=== PATIENT | female | born 1940 | race Caucasian/White ===

== ENCOUNTER 2020-06-05 14:25 | Outpatient (CLI) | payer MEDICARE, BC ==
[~2020-06-05 14:25] MED LIST: ASPI-1265 PO; CHOL4PAC2 PO; FENO135C3 PO; FOLI-43 PO; LISI-600 PO; LOVA20TA2 PO
== END 2020-06-05 23:59 | disposition home or self-care (01) ==
LOC: RAD 14:25
DX: R13.14 Dysphagia, pharyngoesophageal phase (principal); K21.9 Gastro-esophageal reflux disease without esophagitis
CPT/HCPCS: 74230

== ENCOUNTER 2022-02-24 08:19 | Emergency (ER) | payer MEDICARE, BC ==
[~2022-02-24] VITALS: Ht 162.6 cm; Wt 50.0 kg
[~2022-02-24 08:19] MED LIST changes: -CHOL4PAC2 PO; +CHOL4POW4 PO; -LISI-600 PO; +LISI20TA28 PO
[2022-02-24] MEDS ORDERED: aspirin 81mg tab.chew PO ONE (08:20)
[2022-02-24 08:48] LABS: BASOPHILS % (AUTO) 0.7 % (0-1); EOSINOPHILS % (AUTO) 0.7 % (0-6); HEMATOCRIT 36.7 % (35.0-45.0); HEMOGLOBIN 12.4 g/dl (12.0-16.0); LYMPHOCYTES # (AUTO) 1.1 X10'3 (1.1-4.8); LYMPHOCYTES % (AUTO) 19.8 % (21-51); MEAN CORPUSCULAR HEMOGLOBIN 32.3 PG (27.0-31.0); MEAN CORPUSCULAR HGB CONC 33.7 g/dL (33.0-36.5); MEAN CORPUSCULAR VOLUME 95.7 FL (78-98); MEAN PLATELET VOLUME 8.1 FL (7.4-10.4); MONOCYTES # (AUTO) 0.5 X10'3 (0-0.9); MONOCYTES % (AUTO) 8.9 % (2-12); NEUTROPHILS % (AUTO) 69.9 % (42-75); PLATELET COUNT 278 X10'3 (140-440); RED BLOOD COUNT 3.83 X10'6 (4.20-5.60); RED CELL DISTRIBUTION WIDTH 13.6 % (11.5-14.5); WHITE BLOOD COUNT 5.7 X10'3 (4.5-11.0)
[2022-02-24 09:00] LABS: ALANINE AMINOTRANSFERASE 13 U/L (12-78); ALBUMIN 3.3 G/DL (3.4-5.0); ALBUMIN/GLOBULIN RATIO 0.8 (1.1-1.5); ALKALINE PHOSPHATASE 48 IU/L (46-116); ANION GAP 12 (8-16); ASPARTATE AMINO TRANSFERASE 15 U/L (10-37); BILIRUBIN,TOTAL 0.5 MG/DL (0.1-1.0); BLOOD UREA NITROGEN 14 MG/DL (7-18); BUN/CREATININE RATIO 19.7 (6.6-38.0); CALCIUM 10.1 MG/DL (8.5-10.1); CHLORIDE 104 MMOL/L (99-107); CREATININE 0.71 MG/DL (0.40-0.90); GLUCOSE 113 MG/DL (70-104); POTASSIUM 3.5 MMOL/L (3.5-5.1); SODIUM 141 MMOL/L (135-145); TOTAL CARBON DIOXIDE 25.3 MMOL/L (24-32); TOTAL PROTEIN 7.2 G/DL (6.4-8.2); eGFR 79 ML/MIN
[2022-02-24 09:07] LABS: MAGNESIUM 1.9 MG/DL (1.5-2.4)
--- NOTE | 2022-02-24 09:32 | NUR ---
PT WAS SOILED, SHE WAS CLEANED AND DRESSED IN [facility].
[2022-02-24] MEDS ORDERED: normal saline 1000ml 1,000 ML IV ONE (10:20)
[2022-02-24 11:22] VITALS: BP 134/68
== END 2022-02-24 13:42 | disposition home or self-care (01) ==
LOC: ER 08:19
DX: R55 Syncope and collapse (principal); M25.511 Pain in right shoulder; I10 Essential (primary) hypertension; F03.90 Unspecified dementia, unspecified severity, without behavioral disturbance, psychotic disturbance, mood disturbance, and anxiety; Z79.899 Other long term (current) drug therapy
CPT/HCPCS: 36415; 71045; 80053; 83735; 83880; 84484; 85025; 93005; 96360; 96361; 99285; J7030

== ENCOUNTER 2022-03-07 07:38 | Emergency (ER) | payer MEDICARE, BC ==
[~2022-03-07] VITALS: Ht 165.1 cm; Wt 50.0 kg
[2022-03-07] MEDS ORDERED: normal saline 1000ML IV soln IVB ONE (08:05)
[2022-03-07 08:19] LABS: BASOPHILS # (AUTO) 0.1 X10'3 (0-0.2); BASOPHILS % (AUTO) 0.7 % (0-1); EOSINOPHILS # (AUTO) 0.1 X10'3 (0-0.9); EOSINOPHILS % (AUTO) 1.4 % (0-6); HEMATOCRIT 35.8 % (35.0-45.0); HEMOGLOBIN 12.6 g/dl (12.0-16.0); LYMPHOCYTES # (AUTO) 0.9 X10'3 (1.1-4.8); LYMPHOCYTES % (AUTO) 11.9 % (21-51); MEAN CORPUSCULAR HEMOGLOBIN 33.3 PG (27.0-31.0); MEAN CORPUSCULAR HGB CONC 35.3 g/dL (33.0-36.5); MEAN CORPUSCULAR VOLUME 94.4 FL (78-98); MEAN PLATELET VOLUME 7.6 FL (7.4-10.4); MONOCYTES # (AUTO) 0.7 X10'3 (0-0.9); MONOCYTES % (AUTO) 9.7 % (2-12); NEUTROPHILS # (AUTO) 5.4 X10'3 (1.8-7.7); NEUTROPHILS % (AUTO) 76.3 % (42-75); PLATELET COUNT 253 X10'3 (140-440); RED CELL DISTRIBUTION WIDTH 13.6 % (11.5-14.5); WHITE BLOOD COUNT 7.1 X10'3 (4.5-11.0)
[2022-03-07 08:33] LABS: ALANINE AMINOTRANSFERASE 14 U/L (12-78); ALBUMIN 3.7 G/DL (3.4-5.0); ALBUMIN/GLOBULIN RATIO 1.1 (1.1-1.5); ALKALINE PHOSPHATASE 51 IU/L (46-116); ANION GAP 4 (8-16); ASPARTATE AMINO TRANSFERASE 16 U/L (10-37); BILIRUBIN,TOTAL 0.5 MG/DL (0.1-1.0); BLOOD UREA NITROGEN 11 MG/DL (7-18); BUN/CREATININE RATIO 13.1 (6.6-38.0); CALCIUM 9.7 MG/DL (8.5-10.1); CHLORIDE 106 MMOL/L (99-107); CREATININE 0.84 MG/DL (0.40-0.90); GLUCOSE 101 MG/DL (70-104); POTASSIUM 3.7 MMOL/L (3.5-5.1); SODIUM 140 MMOL/L (135-145); TOTAL CARBON DIOXIDE 30.5 MMOL/L (24-32); eGFR 65 ML/MIN
[2022-03-07 10:08] LABS: CLARITY,URINE CLOUDY (Clear); COLOR,URINE YELLOW (Yellow); GLUCOSE, URINE NEGATIVE (Neg); KETONES,URINE NEGATIVE (Neg); LEUKOCYTE ESTERASE ,URINE SMALL (Neg); NITRITES, URINE NEGATIVE (Neg); OCCULT BLOOD,URINE NEGATIVE (Neg); PH,URINE 8.5 (4.8-8.0); PROTEIN,URINE NEGATIVE (Neg); UROBILINOGEN,URINE 0.2 E.U/dL (0.2-1.0)
[2022-03-07 10:16] LABS: UA COLLECTION TYPE CLN CATCH MIDSTREAM
[2022-03-07 10:32] LABS: SQUAMOUS EPITHELIAL CELL,UR MANY /LPF (FEW)
[2022-03-07 10:33] LABS: AMORPHOUS PHOSPHATES 2+; RBC,URINE 0-2 /HPF (0-2); WBC,URINE 0-4 /HPF (0-4)
[2022-03-07 10:34] LABS: BACTERIA,URINE 1+ /HPF (Neg)
[2022-03-07 10:46] VITALS: BP 151/69
--- NOTE | 2022-03-07 10:55 | NUR ---
Urine culture rejected per lab. RN notified Dr. Salvador. Per MD, not needed. RN discharged pt.
== END 2022-03-07 11:00 | disposition home or self-care (01) ==
LOC: ER 07:39
DX: R55 Syncope and collapse (principal); S09.90XA Unspecified injury of head, initial encounter; I10 Essential (primary) hypertension; W19.XXXA Unspecified fall, initial encounter; Y93.89 Activity, other specified; Y92.89 Other specified places as the place of occurrence of the external cause; Y99.8 Other external cause status
CPT/HCPCS: 36415; 70450; 71045; 72125; 80053; 81001; 82948; 83880; 84145; 84484; 85025; 93005; 96360; 96361; 99285; J7030; L0172

== ENCOUNTER 2022-03-11 09:05 | Emergency (ER) | payer MEDICARE, BC ==
[~2022-03-11] VITALS: Ht 165.1 cm; Wt 59.1 kg
[2022-03-11] MEDS ORDERED: normal saline 1000ML IV soln IVB ONE ×2 (09:20→11:25)
[2022-03-11 09:47] LABS: BASOPHILS # (AUTO) 0.1 X10'3 (0-0.2); BASOPHILS % (AUTO) 0.5 % (0-1); EOSINOPHILS # (AUTO) 0.1 X10'3 (0-0.9); EOSINOPHILS % (AUTO) 0.7 % (0-6); HEMATOCRIT 40.8 % (35.0-45.0); HEMOGLOBIN 13.4 g/dl (12.0-16.0); LYMPHOCYTES # (AUTO) 1.3 X10'3 (1.1-4.8); LYMPHOCYTES % (AUTO) 9.2 % (21-51); MEAN CORPUSCULAR HEMOGLOBIN 31.9 PG (27.0-31.0); MEAN CORPUSCULAR HGB CONC 32.9 g/dL (33.0-36.5); MEAN CORPUSCULAR VOLUME 96.9 FL (78-98); MEAN PLATELET VOLUME 8.5 FL (7.4-10.4); MONOCYTES % (AUTO) 7.3 % (2-12); NEUTROPHILS # (AUTO) 11.5 X10'3 (1.8-7.7); NEUTROPHILS % (AUTO) 82.3 % (42-75); PLATELET COUNT 264 X10'3 (140-440); RED BLOOD COUNT 4.21 X10'6 (4.20-5.60); RED CELL DISTRIBUTION WIDTH 14.1 % (11.5-14.5)
[2022-03-11 10:50] LABS: ALANINE AMINOTRANSFERASE 11 U/L (12-78); ALBUMIN 3.7 G/DL (3.4-5.0); ALBUMIN/GLOBULIN RATIO 1.1 (1.1-1.5); ALKALINE PHOSPHATASE 53 IU/L (46-116); ANION GAP 6 (8-16); BILIRUBIN,TOTAL 0.5 MG/DL (0.1-1.0); BLOOD UREA NITROGEN 13 MG/DL (7-18); BUN/CREATININE RATIO 17.8 (6.6-38.0); CALCIUM 9.8 MG/DL (8.5-10.1); CHLORIDE 108 MMOL/L (99-107); CREATININE 0.73 MG/DL (0.40-0.90); GLUCOSE 101 MG/DL (70-104); SODIUM 142 MMOL/L (135-145); TOTAL PROTEIN 7.1 G/DL (6.4-8.2); eGFR 76 ML/MIN
[2022-03-11 11:01] LABS: ASPARTATE AMINO TRANSFERASE 22 U/L (10-37); POTASSIUM 4.9 MMOL/L (3.5-5.1)
[2022-03-11 11:38] VITALS: BP 145/66
[2022-03-11 12:13] LABS: CLARITY,URINE CLEAR (Clear); COLOR,URINE YELLOW (Yellow); GLUCOSE, URINE NEGATIVE (Neg); KETONES,URINE NEGATIVE (Neg); LEUKOCYTE ESTERASE ,URINE NEGATIVE (Neg); NITRITES, URINE NEGATIVE (Neg); OCCULT BLOOD,URINE TRACE-INTACT (Neg); PROTEIN,URINE TRACE mg/dl (Neg); UROBILINOGEN,URINE 0.2 E.U/dL (0.2-1.0)
[2022-03-11 12:14] LABS: UA COLLECTION TYPE STRAIGHT CATH
[2022-03-11 12:42] LABS: MUCUS STRANDS NONE SEEN /LPF (Neg); RBC,URINE 0-2 /HPF (0-2); SQUAMOUS EPITHELIAL CELL,UR FEW /LPF (FEW)
[2022-03-11 12:43] LABS: BACTERIA,URINE 2+ /HPF (Neg)
--- NOTE | 2022-03-11 13:45 | NUR ---
PHONED IN PRESCRIPTION FOR DR. JEROME. KEFLEX 500MG 1TAB PO TID X [address] [place]. [phone]. SPOKE TO THA ARMENTA.
== END 2022-03-11 13:52 ==
LOC: ER 09:05
DX: R55 Syncope and collapse (principal); N39.0 Urinary tract infection, site not specified; I10 Essential (primary) hypertension
CPT/HCPCS: 36415; 51701; 71045; 80053; 81001; 84484; 85025; 87088; 93005; 96360; 99285; J7030; A4353

== ENCOUNTER 2022-10-21 07:53 | Emergency (ER) | payer MEDICARE, BC ==
[~2022-10-21] VITALS: Ht 167.6 cm; Wt 64.0 kg
--- NOTE | 2022-10-21 08:21 | NUR ---
Notified Radha Mello RN for report.
[2022-10-21 08:40] VITALS: BP 156/74
== END 2022-10-21 08:41 | disposition home or self-care (01) ==
LOC: ER 07:55
DX: S01.21XA Laceration without foreign body of nose, initial encounter (principal); I10 Essential (primary) hypertension; F03.90 Unspecified dementia, unspecified severity, without behavioral disturbance, psychotic disturbance, mood disturbance, and anxiety; Z79.899 Other long term (current) drug therapy; W18.39XA Other fall on same level, initial encounter; Y93.89 Activity, other specified; Y92.89 Other specified places as the place of occurrence of the external cause; Y99.8 Other external cause status
CPT/HCPCS: 12011; 99284

== ENCOUNTER 2023-04-28 09:37 | Observation (INO) | payer MEDICARE, BC ==
[~2023-04-28] VITALS: Ht 167.6 cm; Wt 53.6 kg
[2023-04-28 10:40] LABS: BASOPHILS % (AUTO) 0.2 % (0-1); EOSINOPHILS # (AUTO) 0.1 X10'3 (0-0.9); EOSINOPHILS % (AUTO) 0.6 % (0-6); HEMATOCRIT 37.7 % (35.0-45.0); HEMOGLOBIN 12.4 g/dl (12.0-16.0); LYMPHOCYTES # (AUTO) 1.2 X10'3 (1.1-4.8); LYMPHOCYTES % (AUTO) 10.2 % (21-51); MEAN CORPUSCULAR HEMOGLOBIN 32.1 PG (27.0-31.0); MEAN CORPUSCULAR HGB CONC 32.9 g/dL (33.0-36.5); MEAN CORPUSCULAR VOLUME 97.5 FL (78-98); MEAN PLATELET VOLUME 8.7 FL (7.4-10.4); MONOCYTES # (AUTO) 1.3 X10'3 (0-0.9); MONOCYTES % (AUTO) 10.8 % (2-12); NEUTROPHILS # (AUTO) 9.1 X10'3 (1.8-7.7); NEUTROPHILS % (AUTO) 78.2 % (42-75); PLATELET COUNT 206 X10'3 (140-440); RED BLOOD COUNT 3.86 X10'6 (4.20-5.60); RED CELL DISTRIBUTION WIDTH 13.9 % (11.5-14.5); WHITE BLOOD COUNT 11.7 X10'3 (4.5-11.0)
[2023-04-28 10:54] LABS: ALANINE AMINOTRANSFERASE 19 U/L (12-78); ALBUMIN 3.5 G/DL (3.4-5.0); ALKALINE PHOSPHATASE 51 IU/L (46-116); ANION GAP 5 (8-16); ASPARTATE AMINO TRANSFERASE 19 U/L (10-37); BILIRUBIN,TOTAL 0.5 MG/DL (0.1-1.0); BLOOD UREA NITROGEN 17 MG/DL (7-18); BUN/CREATININE RATIO 23.9 (10.0-20.0); CALCIUM 8.9 MG/DL (8.5-10.1); CHLORIDE 106 MMOL/L (99-107); CREATININE 0.71 MG/DL (0.40-0.90); GLUCOSE 129 MG/DL (70-104); POTASSIUM 3.8 MMOL/L (3.5-5.1); SODIUM 138 MMOL/L (135-145); TOTAL CARBON DIOXIDE 26.9 MMOL/L (24-32); eCRCL 48 ML/MIN; eGFR 78 ML/MIN
[2023-04-28 11:07] LABS: PRO BRAIN NATRIURETIC PEPTIDE 207 PG/ML (0-450)
[2023-04-28 14:25] LABS: BILIRUBIN,URINE NEGATIVE (Neg); CLARITY,URINE CLOUDY (Clear); COLOR,URINE YELLOW (Yellow); GLUCOSE, URINE NEGATIVE (Neg); KETONES,URINE NEGATIVE (Neg); LEUKOCYTE ESTERASE ,URINE TRACE (Neg); NITRITES, URINE NEGATIVE (Neg); OCCULT BLOOD,URINE NEGATIVE (Neg); PH,URINE 7.5 (4.8-8.0); PROTEIN,URINE 30 mg/dl (Neg)
[2023-04-28] MEDS ORDERED: magnesium Cl slow-release 64mg tablet PO PRN (14:25)
[2023-04-28] MEDS ORDERED: potassium Cl 40MEQ/1/2NS 520ml 520 ML IV PRN (14:25)
[2023-04-28] MEDS ORDERED: acetaminophen 325mg tablet PO PRN ×2 (14:25)
[2023-04-28] MEDS ORDERED: magnesium 2GM in 50ml NS 50 ML IV PRN (14:25)
[2023-04-28] MEDS ORDERED: potassium Cl 20 mEq SR tablet PO PRN ×2 (14:25)
[2023-04-28] MEDS ORDERED: ondansetron/PF 4mg/2ml inj IV PRN (14:25)
[2023-04-28] MEDS ORDERED: magnesium 4gm in 100ml NS 100 ML IV PRN (14:25)
[2023-04-28 14:29] LABS: UA COLLECTION TYPE CLN CATCH MIDSTREAM
[2023-04-28 14:34] LABS: MUCUS STRANDS MANY /LPF (Neg); SQUAMOUS EPITHELIAL CELL,UR MANY /LPF (FEW)
[2023-04-28 14:35] LABS: BACTERIA,URINE 2+ /HPF (Neg)
[2023-04-28] MEDS ORDERED: LORazepam 2 mg/ml vial IV PRN (15:10)
[2023-04-28] MEDS ORDERED: LORazepam 1 MG tablet PO PRN (15:10)
[2023-04-28] MEDS ORDERED: FERR325T35 PO (15:15)
[2023-04-28] MEDS ORDERED: ALPR-623 PO (15:15)
[2023-04-28] MEDS ORDERED: OMEP20CA16 PO (15:15)
[2023-04-28] MEDS: normal saline 1000ml 1,000 ML IV SCH (15:26)
[2023-04-28] MEDS ORDERED: enoxaparin 40mg/0.4ml syringe SQ SCH (20:00)
[2023-04-28 23:59] VITALS: BP 141/78; PULSE 86; RESP 20; TEMP 98.9; O2SAT 96
[2023-04-29 00:15] VITALS: RESP 17; O2SAT 94
[2023-04-29 02:00] VITALS: BP 145/73; PULSE 85; RESP 14; TEMP 97.9; O2SAT 98
[2023-04-29 06:00] VITALS: BP 137/69; PULSE 94; RESP 13; TEMP 98.8; O2SAT 96
[2023-04-29] MEDS ORDERED: CefTRIAXone 2gm/D5W 50ml BAG 50 ML IV SCH (08:00)
[2023-04-29] MEDS ORDERED: fenofibrate 145mg tablet PO SCH (08:00)
[2023-04-29 09:32] LABS: BASOPHILS % (AUTO) 0.4 % (0-1); EOSINOPHILS # (AUTO) 0.1 X10'3 (0-0.9); EOSINOPHILS % (AUTO) 1.1 % (0-6); HEMOGLOBIN 12.2 g/dl (12.0-16.0); LYMPHOCYTES # (AUTO) 1.4 X10'3 (1.1-4.8); LYMPHOCYTES % (AUTO) 17.9 % (21-51); MEAN CORPUSCULAR HEMOGLOBIN 32.5 PG (27.0-31.0); MEAN CORPUSCULAR HGB CONC 34.1 g/dL (33.0-36.5); MEAN CORPUSCULAR VOLUME 95.5 FL (78-98); MEAN PLATELET VOLUME 8.7 FL (7.4-10.4); MONOCYTES % (AUTO) 12.2 % (2-12); NEUTROPHILS # (AUTO) 5.4 X10'3 (1.8-7.7); NEUTROPHILS % (AUTO) 68.4 % (42-75); PLATELET COUNT 218 X10'3 (140-440); RED BLOOD COUNT 3.76 X10'6 (4.20-5.60); RED CELL DISTRIBUTION WIDTH 13.4 % (11.5-14.5); WHITE BLOOD COUNT 7.9 X10'3 (4.5-11.0)
[2023-04-29] MEDS: normal saline 1000ml 1,000 ML IV SCH (10:25)
[2023-04-29 11:00] VITALS: BP 164/73; PULSE 85; RESP 15; TEMP 97.4; O2SAT 96
[2023-04-29] MEDS ORDERED: LISI10TA27 PO (14:46)
[2023-04-29 15:00] VITALS: BP 121/74; PULSE 77; RESP 18; TEMP 97.7; O2SAT 98
[2023-05-13] MEDS ORDERED: CEPH-585 PO (19:24)
== END 2023-04-29 16:13 | disposition home or self-care (01) ==
LOC: ER 09:37 → ED HOLD 14:29 → PCU 3S 23:48
PROVIDERS: ADMIT Internal Medicine; ATTEND Internal Medicine
DX: I95.9 Hypotension, unspecified (principal); R41.82 Altered mental status, unspecified; I10 Essential (primary) hypertension; G30.9 Alzheimer's disease, unspecified; F02.811 Dementia in other diseases classified elsewhere, unspecified severity, with agitation; E78.5 Hyperlipidemia, unspecified; K21.9 Gastro-esophageal reflux disease without esophagitis; Z79.899 Other long term (current) drug therapy
CPT/HCPCS: 36415; 70450; 71045; 80053; 81001; 83605; 83880; 84145; 84484; 85025; 85651; 87040; 87081; 92508; 92616; 93005; 96361; 96365; 96372; 97161; 97530; 97535; G0378; J0696; J1650; J7030

== ENCOUNTER 2023-05-12 08:21 | Emergency (ER) | payer MEDICARE, BC ==
[~2023-05-12] VITALS: Ht 162.6 cm; Wt 50.0 kg
[~2023-05-12 08:21] MED LIST changes: +ALPR-623 PO; -ASPI-1265 PO; -CHOL4POW4 PO; +FERR325T35 PO; -FOLI-43 PO; +LISI10TA27 PO; -LISI20TA28 PO; -LOVA20TA2 PO; +OMEP20CA16 PO
[2023-05-12 08:24] VITALS: TEMP 98.5
[2023-05-12] MEDS ORDERED: normal saline 1000ML IV soln IVB ONE (10:05)
[2023-05-12 10:37] LABS: BASOPHILS % (AUTO) 0.2 % (0-1); EOSINOPHILS % (AUTO) 0 % (0-6); HEMATOCRIT 40.5 % (35.0-45.0); HEMOGLOBIN 13.7 g/dl (12.0-16.0); LYMPHOCYTES # (AUTO) 0.3 X10'3 (1.1-4.8); LYMPHOCYTES % (AUTO) 12.8 % (21-51); MEAN CORPUSCULAR HEMOGLOBIN 32.3 PG (27.0-31.0); MEAN CORPUSCULAR HGB CONC 33.7 g/dL (33.0-36.5); MEAN CORPUSCULAR VOLUME 95.9 FL (78-98); MEAN PLATELET VOLUME 8.1 FL (7.4-10.4); MONOCYTES # (AUTO) 0.7 X10'3 (0-0.9); NEUTROPHILS # (AUTO) 1.6 X10'3 (1.8-7.7); PLATELET COUNT 220 X10'3 (140-440); RED BLOOD COUNT 4.23 X10'6 (4.20-5.60); RED CELL DISTRIBUTION WIDTH 13.4 % (11.5-14.5); WHITE BLOOD COUNT 2.6 X10'3 (4.5-11.0)
[2023-05-12 10:38] LABS: BILIRUBIN,URINE NEGATIVE (Neg); CLARITY,URINE SLIGHTLY CLOUDY (Clear); COLOR,URINE YELLOW (Yellow); GLUCOSE, URINE NEGATIVE (Neg); KETONES,URINE NEGATIVE (Neg); LEUKOCYTE ESTERASE ,URINE NEGATIVE (Neg); NITRITES, URINE NEGATIVE (Neg); OCCULT BLOOD,URINE TRACE-INTACT (Neg); PROTEIN,URINE TRACE mg/dl (Neg); UROBILINOGEN,URINE 0.2 E.U/dL (0.2-1.0)
[2023-05-12 10:51] LABS: UA COLLECTION TYPE STRAIGHT CATH
[2023-05-12 10:54] LABS: ALANINE AMINOTRANSFERASE 15 U/L (12-78); ALBUMIN 3.6 G/DL (3.4-5.0); ALBUMIN/GLOBULIN RATIO 0.8 (1.1-1.5); ALKALINE PHOSPHATASE 53 IU/L (46-116); ANION GAP 8 (8-16); ASPARTATE AMINO TRANSFERASE 26 U/L (10-37); BILIRUBIN,TOTAL 0.4 MG/DL (0.1-1.0); BLOOD UREA NITROGEN 20 MG/DL (7-18); BUN/CREATININE RATIO 32.8 (10.0-20.0); CALCIUM 9.4 MG/DL (8.5-10.1); CHLORIDE 101 MMOL/L (99-107); CREATININE 0.61 MG/DL (0.40-0.90); GLUCOSE 104 MG/DL (70-104); POTASSIUM 3.7 MMOL/L (3.5-5.1); SODIUM 139 MMOL/L (135-145); TOTAL CARBON DIOXIDE 29.7 MMOL/L (24-32); TOTAL PROTEIN 8.3 G/DL (6.4-8.2); eCRCL 54 ML/MIN; eGFR > 90 ML/MIN
[2023-05-12 10:56] LABS: AMMONIA < 10 UMOL/L (11-32)
[2023-05-12 10:57] LABS: LACTIC SEPSIS 1.5 MMOL/L (0.4-2.0)
[2023-05-12 11:01] LABS: MUCUS STRANDS FEW /LPF (Neg); SQUAMOUS EPITHELIAL CELL,UR FEW /LPF (FEW)
[2023-05-12 11:02] LABS: TRANSITIONAL EPI CELLS,URINE FEW /HPF; WBC,URINE 0-4 /HPF (0-4)
[2023-05-12 11:03] LABS: AMORPHOUS URATES 1+; BACTERIA,URINE NONE SEEN /HPF (Neg)
[2023-05-12 11:08] LABS: PLATELET ESTIMATE NORMAL; TOTAL CELLS COUNTED 100
[2023-05-12 13:30] VITALS: BP 120/72; PULSE 78; RESP 12; O2SAT 98
[2023-05-13] MEDS ORDERED: CEPH-585 PO (19:24)
== END 2023-05-12 13:34 | disposition home or self-care (01) ==
LOC: ER 08:22
DX: R53.1 Weakness (principal); I10 Essential (primary) hypertension; E78.00 Pure hypercholesterolemia, unspecified; Z79.899 Other long term (current) drug therapy; W19.XXXA Unspecified fall, initial encounter; Y93.89 Activity, other specified; Y92.89 Other specified places as the place of occurrence of the external cause; Y99.8 Other external cause status
CPT/HCPCS: 36415; 70450; 71045; 73521; 80053; 81001; 82140; 83605; 84484; 85007; 85025; 87040; 93005; 99285; J7030; J7040; A4353